=== PATIENT | male | born 1990 | race Caucasian/White ===

== ENCOUNTER 2024-07-10 05:13 | Emergency (ER) | payer OTHER, SELFPAY ==
[2024-07-10 05:16] VITALS: BP 126/99; PULSE 98; RESP 18; TEMP 36.9; O2SAT 99; BMI 23.9
[2024-07-10 05:34] LABS: MANUAL DIFF FLAG NO
[2024-07-10 05:36] LABS: Basophils Percent Auto 0.6 % (0-2); Eosinophils Absolute Auto 0.1 X10*3/uL (0.0-0.4); Hematocrit 42.8 % (42.0-52.0); Imm Gran Abs Auto 0.02 X10*3/uL (0.00-0.03); Imm Gran Pct Auto 0.4 % (0.0-0.4); Lymphocytes Absolute Auto 2.7 X10*3/uL (1.2-4.9); Lymphocytes Percent Auto 54.5 % (20-40); Mean Corpuscular Hemoglobin 30.9 pg (27.0-33.0); Mean Corpuscular Volume 88.1 fL (80.0-98.0); Mean Platelet Volume 9.1 fL (9.4-12.4); Monocytes Absolute Auto 0.6 X10*3/uL (0.1-1.2); Monocytes Percent Auto 11.6 % (2-11); Neutrophils Absolute Auto 1.5 x10*3/uL (2.0-8.3); Neutrophils Percent Auto 30.9 % (45-73); Platelet Count 347 X10*3/uL (160-400); Red Blood Count 4.86 X10*6/uL (4.60-5.80); Red Cell Distribution Width 13.4 % (11.0-16.0)
--- OUTSIDE RECORDS SUMMARY | 2024-07-10 05:37 | XMS_ITS | Continuity of Care Document ---
Author Organization [facility] al Address [address] [place] [address]- Care Team Providers Care Lubrication Worker Name Role Phone Not on Staff, PCP Primary Care Physician Unavail able [id number] Date(s): 07/07/24 - 07/07/[address] [address]- Discharge Disposition: A-D/C Walkout Attending Physician: Not on Staff, Attending MD Admitting Physician: Not on Staff, Admitting MD Referring Physician: Not on Staff, Referring MD Encounter Type: Disch ES Allergies, Adverse Reactions, Alerts Substance Criticality Severity Reaction Reaction Severity Status penicillin Anaphylaxis hives Active Other Food Allergy 1 Active 1blue cheese Immunizations Given and Recorded Vaccine Date Status Refusal Reason tetanus/diphtheria/pertussis, acel(Tdap) 03/29/21 Given Vital Signs Most recent to oldest [Reference Range]: 1 Height 170 cm (07/07/24 9:15 PM) Weight 69.7 kg (07/07/24 9:15 PM) Oxygen Saturation [94-100 %] 98 % (07/07/24 9:15 PM) Pulse Rate [55-90 bpm] 104 bpm *H* (07/07/24 9:15 PM) Blood Pressure [90-138/55-84 mm Hg] 117/ 79mm Hg (07/07/24 9:15 PM) Respiratory Rate [16-30 br/min] 18 br/mi n (07/07/24 9:15 PM) Temperature [96.8-100.4 DegF] 99 DegF (07/07/24 9:15 PM) Mode of Delivery (Oxygen) Room air (07/07/24 9:15 PM) Blood pressure sites Arm, left (07/07/24 9:15 PM) Temperature Route Temporal (07/07/24 9:15 PM) Dry Weight 69.7 kg (07/07/24 9:15 PM) Weight Obtained Via Standing scale (07/07/24 9:15 PM) Social History Social History Type Response Smoking Status Light tobacco smoker entered on: 04/22/15 Sex Sex Representation Male (finding) Patient Care team information Care Team Personnel Name: Not on Staff, PCP Position: [facility] Physician (General Medicine) Member Role: PCP Care Team Related Persons Name: LIGIA CALLES Name: CHAD CALLES Insurance Providers Guarantor name: JERAMIE Health Plan Information #: 1 Payer: [facility] Member Number: [id number] Policy Number: JERAMIE Group Number: [id number] Health Plan Information #: 2 Payer: [facility] Member Number: [id number] Policy Number: JERAMIE Group Number: [id number]
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
--- OUTSIDE RECORDS SUMMARY | 2024-07-10 05:37 | XMS_ITS | Clinical Summary ---
Author Organization [facility] Address [id number] [place] [id number] Care Team Providers Care Drive Away Driver Name Role Phone Unavailable Primary Care Provider Unavailabl e Surgical History Surgery Date Site/Laterality Comments OTHER SURGICAL HISTORY PROCEDURE: DENIES PREVIOUS SURGERY Medical History Medical History Date Comments Closed fracture of middle or proximal phalanx or phalanges of hand 11/08 DX:Closed fracture of middle or proximal phalanx or phalanges of hand Historical Medical DX 07/15 DX:Fractur e clavicle-closed; COMMENT: right Concussion 06/2009; 06/02/11 DX:Concussion; COMMENT: snowboarding (also with fx'ed thoracic vertebrae); skateboarding Family History Medical History Relation Name Comments Hypertension Father Nephrolithiasis Father Diabetes Other 1 Mother's side Other: heart disea Other 2 Maternal Grandmother Relation Name Status Comments Brother 1 Alive 03/1991 Sriram Brother 2 Alive 06/1996 Preet Father Alive 1956 Mother Alive 1965 Other 1 Other 2 Other 3 Social History Tobacco Use Types Packs/Day Years Used Date Smoking Tobacco: Passive Smo ke Exposure - Never Smoker Smokeless Tobacco: Never Alcohol Use Standard Drinks/Week Comments No 0 (1 standard drink = 0.6 oz pur e alcohol) Sex and Gender Information Value Date Recorded Sex Assigned at Not on file Gender Identity Not on file Sexual Orientation Not on file Obstetrics History Plan of Treatment Health Maintenance Due Date Last Done Comments DTaP,Tdap,and Td Vaccines (8 - Td or Tdap) 11/27/2018 11/27/2008, 10/21/2004, 10/08/1997, Additional history exists Depression Screening 05/05/2022 HIV Screening 05/05/2022 Hepatitis C Screening 05/05/2022 Social Influencers of Health Screening 05/05/2022 COVID-19 Vaccine ( season) 2024 Influenza Vaccine (#1) 2024 Hepatitis B Vaccines Completed 07/21/1993, 1992, 1992 IPV Vaccines Completed 10/08/1997, 04/07, 02/18/1993, Additional history exists MMR Vaccines Completed 10/08/1997, 02/13/1994 Varicella Vaccines Completed 12/04/2009, 03/15/1995 Meningococcal ACWY Vaccine Aged Out 01/26/2012, No longer eligible based on patient's age to complete this topic HIB Vaccines Aged Out No longer eligi ble based on patient's age to complete this topic HPV Vaccines Aged Out No longer eligi ble based on patient's age to complete this topic Hepatitis A Vaccines Aged Out No long er eligible based on patient's age to complete this topic Pneumococcal Vaccine: Pediatrics (0 to 5 Years) and At-Risk Patients (6 to 64 Years) Aged Out No longer eligible based on patient's age to complete this topic RSV Immunization Patients Under 20 months Aged Out No longer eligible based on patient's age to complete this topic
[2024-07-10 05:49] LABS: Alanine Aminotransferase 56 U/L (0-40); Albumin Level 4.3 g/dL (3.5-5.0); Alkaline Phosphatase 70 U/L (39-117); Anion Gap 16 (12-20); Aspartate Amino Transferase 64 U/L (5-37); Bilirubin Total 0.3 mg/dL (0.0-1.0); Blood Urea Nitrogen 8 mg/dL (9-16); Calcium 8.8 mg/dL (8.4-10.2); Carbon Dioxide 22 mmol/L (22-29); Chloride 110 mmol/L (96-108); Creatinine Clr Calc Pharmacy 150.7; Estimated Glomerular Filt Rate > 60; Ethanol 245 mg/dL; Glucose Random 106 mg/dL (60-115); Potassium 3.7 mmol/L (3.3-5.1); Sodium 144 mmol/L (135-145); Total Protein 7.3 g/dL (6.5-8.0)
[2024-07-10 05:51] LABS: COVID-19 Test Negative (Negative); IDNOW Serial# 55D5AD1C
[2024-07-10 05:54] LABS: Acetaminophen LAB < 3 mcg/mL (<30); Salicylate < 5.0 mg/dL (15-30)
[2024-07-10 06:00] VITALS: BP 145/88; PULSE 85; RESP 18; TEMP 36.6; O2SAT 97
--- NOTE | 2024-07-10 06:53 | ED.GENADULT ---
HPI - General Adult General Chief complaint: ETOH/Substance Use Stated complaint: ETOH, trembling Time Seen by Provider: 07/10/24 06:51 Source: patient Mode of arrival: ambulatory Limitations: no limitations History of Present Illness ED Provider: Alisson Bhatti PA-C HPI narrative: Patient is a 33 year old assigned male at with a history of alcohol abuse presenting to the emergency department today with alcohol intoxication and requesting recovery. Patient states that he was recently sectioned to [facility] for alcohol abuse, was discharged, and has been drinking at least 2 handles of vodka + rum per day. Patient denies any history of alcohol withdrawal seizures. Patient denies any dizziness, lightheadedness, abdominal pain, nausea, vomiting, fever, chills, blurry vision, double vision, loss of vision, chest pain, difficulty breathing, shortness of breath, back pain, night sweats, pain with urination, increased urinary frequency, increased urinary urgency, blood in his urine or stool, syncope or a near syncopal episode, recent trauma or falls, bowel incontinence, bladder incontinence, or any other complaints at this time. Relieving factors: none Exacerbating factors: none Associated symptoms: denies other symptoms Treatments prior to arrival: none Related Data Allergies Allergy/AdvReac Type Severity Reaction Status Date / Time Penicillins Allergy Anaphylaxis Verified 07/10/24 05:18 Review of Systems Constitutional: Constitutional: Reports no additional constitutional complaints, Denies chills, Denies fever(s) and Denies night sweats Eyes: Eyes: Reports no additional eye complaints, Denies blurry vision, Denies change in vision, Denies diplopia, Denies eye discharge, Denies loss of vision and Denies eye pain ENT: Denies dizziness Cardiovascular: Cardiovascular: Reports no additional cardiovascular complaints, Denies chest pain, Denies lightheadedness, Denies Loss of Consciousness and Denies dyspnea Respiratory: Respiratory: Reports no additional respiratory complaints and Denies dyspnea Gastrointestinal: Gastrointestinal: Reports no additional gastrointestinal complaints, Denies abdominal pain, Denies melena, Denies hematochezia, Denies change in bowel habits and Denies change in stool character Genitourinary: Genitourinary: Reports no additional male genitourinary complaints, Denies hematuria, Denies oliguria, Denies difficulty urinating, Denies dysuria, Denies urinary frequency, Denies urinary hesitancy, Denies urinary incontinence and Denies urinary urgency Musculoskeletal: Musculoskeletal: Reports no additional musculoskeletal complaints, Denies numbness and Denies tingling Neurologic: Denies dizziness, Denies loss of vision, Denies numbness and Denies tingling Psychiatric: Psychiatric: Reports no additional psychiatric complaints Endocrine: Endocrine: Reports no additional endocrine complaints Hematologic/Lymphatic: Hematologic/Lymphatic: Reports no additional hematologic/lymphatic complaints Allergic/Immunologic: Allergic/Immunologic: Reports no additional allergic/immunologic complaints [facility] Past Medical History Attestation statement: The following information was validated with the patient. Source: old records reviewed and nursing notes reviewed Social History Social History Alcohol intake: current Alcohol intake frequency: 3 or more drinks per day Alcohol type: hard liquor Smoked in Last 30 Days: Yes Advance Directives: No Advance Directives Information Provided: Yes Do you have a plan to hurt others: No Plan Physical Exam ED Vital Signs: Vital Signs - 24 hr 07/10/24 05:16 07/10/24 06:00 07/10/24 08:20 Temperature 98.4 F 97.8 F 97.8 F Pulse Rate 98 85 74 Respiratory Rate 18 18 20 Blood Pressure 126/99 H 145/88 H 116/73 Pulse Oximetry 99 97 95 Oxygen Delivery Method Room Air Room Air Room Air 07/10/24 12:21 Temperature 98 F Pulse Rate 80 Respiratory Rate 18 Blood Pressure 143/78 H Pulse Oximetry 96 Oxygen Delivery Method Room Air BMI result Body Mass Index 23.9 Const General: cooperative, no acute distress, alert and awake Nutritional Appearance: well nourished Orientation/consciousness: patient oriented x3 Limitations: no limitations HENMT Head: Yes normal to inspection and Yes atraumatic Ears: hearing grossly normal bilaterally and external ears normal General nose exam: Normal external nose present, no nasal discharge noted and no epistaxis Face and sinus: Yes normal facial exam, No abrasion and No laceration Mouth: Normal oral and palatal mucosa present, no drooling and no muffled voice Eyes General: appearance normal, both eyes and all related structures Periorbital: periorbital findings normal Eyelids: Yes eyelids normal Conjunctivae: conjunctivae normal Pupils: Equal, round and reactive pupils present EOM: EOMs intact bilaterally Neck Neck: Yes normal visual inspection, Yes full ROM and Yes no lymphadenopathy Chest Chest palpation & inspection: normal inspection of the chest Resp Effort & Inspection: normal respiratory effort and able to speak in complete sentences GI Inspection: Yes normal to inspection Neuro General: patient oriented x3 and moves all extremities Cranial nerves: Yes Equal, round and reactive pupils present Cognition (Neuro): normal cognition Extrem General: Yes normal to inspection, Yes full ROM and Yes capillary refill normal Psych Appearance: grossly normal Mental Status: mental status grossly normal Affect: normal affect Attitude: cooperative Thought process: Normal thought process present Thought content: Normal thought content present Insight: Good insight present (Psych) Medications Administered Discontinued Medications Generic Name Dose Route Start Last Admin Trade Name Macarena PRN Reason Stop Dose Admin Lorazepam 2 mg 07/10/24 06:54 07/10/24 07:17 Lorazepam 1 Mg Tablet PO 07/10/24 06:55 2 mg ONCE ONE Administration Lorazepam 2 mg 07/10/24 12:14 07/10/24 12:18 Lorazepam 1 Mg Tablet PO 07/10/24 12:15 2 mg ONCE ONE Administration Medical Decision Making Medical Decision Making MDM Narrative: Patient is a 33 year old assigned male at with a history of alcohol abuse presenting to the emergency department today with alcohol intoxication and requesting recovery. Patient's physical exam was unremarkable. Patient's blood work showed an elevated ethanol level but otherwise unremarkable. Patient met with recovery who was able to secure him a bed at [facility]. I explained my physical exam findings as well as all test results to the patient. I answered all questions asked by the patient. Patient received multiple doses of PO ativan while in the department which, upon re-evaluation, he stated it helped his withdrawal symptoms significantly. I stressed the importance of the patient taking his medication as directed (either prescribed or as the over the counter packaging recommends). I stressed the importance of the patient following up with his primary care provider. I stressed the importance of the patient returning to the emergency department immediately if his symptoms were to worsen or if he were to develop any dizziness, shortness of breath, difficulty breathing, chest pain, blurry vision, loss of vision, nausea, vomiting, abdominal pain, fever, chills, back pain, or any other complaints. Patient verbalized agreement and understanding with this treatment plan and discharge to [facility]. Differential Diagnosis Differential Diagnoses: The differential diagnosis associated with the presentation includes Alcohol use Alcohol abuse Alcohol withdrawal Admission/Observation Consideration of admission/observation: Escalation of care including admission/observation considered Patient would have been admitted to the hospital had his work up had any findings where hospital admission was appropriate and his clinical presentation warranted hospital admission. Consult Healthcare Provider Management of the patient was discussed with: Behavioral Health Provider (recovery team secured a bed at [facility] as noted in the MDM Rationale portion of this note.) Lab Data [facility] Lab Attestation statement: I reviewed the patient's lab results. My interpretation of these results are in the MDM Rationale portion of this note. 07/10/24 05:26 07/10/24 05:26 Labs: Lab Results 07/10/24 Range/Units 05:26 WBC 5.0 (4.8-10.8) X10*3/uL RBC 4.86 (4.60-5.80) X10*6/uL Hgb 15.0 (14.0-18.0) g/dl Hct 42.8 (42.0-52.0) % MCV 88.1 (80.0-98.0) fL MCH 30.9 (27.0-33.0) pg MCHC 35.0 (31.0-36.0) g/dl RDW 13.4 (11.0-16.0) % Plt Count 347 (160-400) X10*3/uL MPV 9.1 L (9.4-12.4) fL Immature Gran % (Auto) 0.4 (0.0-0.4) % Neut % (Auto) 30.9 L (45-73) % Lymph % (Auto) 54.5 H (20-40) % [place] % (Auto) 11.6 H (2-11) % Eos % (Auto) 2.0 (0-4) % Baso % (Auto) 0.6 (0-2) % Lymph # (Auto) 2.7 (1.2-4.9) X10*3/uL [place] # (Auto) 0.6 (0.1-1.2) X10*3/uL Eos # (Auto) 0.1 (0.0-0.4) X10*3/uL Baso # (Auto) 0.0 (0.0-0.2) X10*3/uL Abs Immat Gran (auto) 0.02 (0.00-0.03) X10*3/uL Absolute Neuts (auto) 1.5 L (2.0-8.3) x10*3/uL Absolute Nucleated RBC 0.000 (0.0-0.012) X10*3/uL Nucleated RBC % (auto) 0.0 (0.0-0.2) /100WBC Sodium 144 (135-145) mmol/L Potassium 3.7 (3.3-5.1) mmol/L Chloride 110 H (96-108) mmol/L Carbon Dioxide 22 (22-29) mmol/L Anion Gap 16 (12-20) BUN 8 L (9-16) mg/dL Creatinine 0.71 (0.5-1.4) mg/dL Estim Creat Clear Calc 150.7 Estimated GFR > 60 Random Glucose 106 (60-115) mg/dL Calcium 8.8 (8.4-10.2) mg/dL Total Bilirubin 0.3 (0.0-1.0) mg/dL AST 64 H (5-37) U/L ALT 56 H (0-40) U/L Alkaline Phosphatase 70 (39-117) U/L Total Protein 7.3 (6.5-8.0) g/dL Albumin 4.3 (3.5-5.0) g/dL Salicylates < 5.0 L (15-30) mg/dL Acetaminophen < 3 (<30) mcg/mL Ethyl Alcohol 245 mg/dL COVID-19 ([facility]) Negative (Negative) COVID-19 Clin Com See Note Discharge Plan Discharge Clinical Impression: Alcoholic intoxication, Alcoholism Patient Disposition: Home, Self-Care Instructions: Alcohol Intoxication (ED), Abuse of Alcohol (DC) Additional Instructions: Please got to [facility] as directed. Follow up with your primary care provider. Return to the emergency department immediately if your symptoms worsen or if you develop any dizziness, shortness of breath, difficulty breathing, chest pain, blurry vision, loss of vision, nausea, vomiting, abdominal pain, fever, chills, back pain, or any other complaints. Referrals: [facility] Family Medicine [Provider Group] (Call to establish and follow up with a primary care provider. If you already have a primary care provider, please follow up with them.) [facility] [Provider Group] (Call to establish and follow up with a primary care provider. If you already have a primary care provider, please follow up with them.) [facility] Primary Jovita Castorena [Provider Group] (Call to establish and follow up with a primary care provider. If you already have a primary care provider, please follow up with them.) Discharge Date/Time: 07/10/24 12:30 Print Language: Macedonian
[2024-07-10] MEDS: LORazepam 1 MG TABLET 2 MG PO ×2 (07:17→12:18)
[2024-07-10 08:20] VITALS: BP 116/73; PULSE 74; RESP 20; TEMP 36.6; O2SAT 95
--- NOTE | 2024-07-10 12:00 | MHC.RECOVRN ---
Pt accepted to [facility]. Transported via [facility].
[2024-07-10 12:21] VITALS: BP 143/78; PULSE 80; RESP 18; TEMP 36.6; O2SAT 96
== END 2024-07-10 12:30 | disposition home or self-care (01) ==
PROVIDERS: Emergency Provider Emergency Medicine
DX: F10.129 Alcohol abuse with intoxication, unspecified (principal); Y90.8 Blood alcohol level of 240 mg/100 ml or more; Z11.52 Encounter for screening for COVID-19; Z79.899 Other long term (current) drug therapy; Z71.41 Alcohol abuse counseling and surveillance of alcoholic
CPT/HCPCS: 36415; 80053; 80143; 80179; 80307; 85025; 87635; 99284; S9485

== ENCOUNTER 2025-03-15 09:40 | Emergency (ER) | payer OTHER, SELFPAY ==
--- NOTE | ~2025-03-15 | XR_ITS ---
EXAMINATION: XR WRIST, LEFT CLINICAL INFORMATION: pain COMPARISON: None available. TECHNIQUE: PA, lateral, oblique, and scaphoid views of the left wrist. FINDINGS: There is no joint diastases. There are no degenerative changes. There is normal bone mineral density. No fracture is identified. XR/XR wrist LT min 3V IMPRESSION: Unremarkable left wrist. Electronically signed by: James Escalante MD 03/15/2025 10:12 AM EDT
--- NOTE | ~2025-03-15 | XR_ITS ---
EXAMINATION: XR HAND, LEFT CLINICAL INFORMATION: pain COMPARISON: None available. TECHNIQUE: PA, lateral, and oblique views of the left hand. FINDINGS: There is normal bone mineral density. There is mild ulnar deviation of the third digit distal to the PIP joint. Joint spaces are preserved. There are no erosions or osteophytes. No fracture is identified XR/XR hand LT min 3V IMPRESSION: Unremarkable left hand. Electronically signed by: James Escalante MD 03/15/2025 10:13 AM EDT
[2025-03-15 09:52] VITALS: BP 120/77; PULSE 65; RESP 20; TEMP 36.6; O2SAT 98; BMI 22.7
--- NOTE | 2025-03-15 10:23 | ED_ITS ---
HPI - Extremity Problem General Chief complaint: Extremity Injury, Upper Stated complaint: L hand injury Time Seen by Provider: 03/15/25 10:23 Source: patient, RN notes reviewed and old records reviewed Mode of arrival: ambulatory Limitations: no limitations History of Present Illness ED Provider: Layton HPI Narrative: Patient is a 34-year-old right-hand dominant male presenting to the emergency department with injury to left hand after accidentally hitting himself with a sledgehammer prior to arrival. States that he was trying to break up bricks when he accidentally injured himself. Denies any other injuries. States tetanus is UTD. MD Complaint: extremity pain Related Data Previous Rx's ?Medication ?Instructions ?Recorded acetaminophen 325 mg capsule 650 mg (2 x 325 mg) PO Q6 H PRN 03/15/25 pain #30 caps doxycycline hyclate 100 mg capsule 100 mg PO BID #10 c aps 03/15/25 ibuprofen 600 mg tablet 600 mg PO TID PRN pain #30 t abs 03/15/25 oxycodone 5 mg tablet 5 mg PO Q6H PRN severe pain (scale 03/15/25 score 7-10) #12 tabs Allergies Allergy/AdvReac Type Severity Reaction Status Date / Time Penicillins Allergy Anaphylaxis Verified 03/15/25 09:53 Review of Systems Review of Systems: As per hPI Yes all other systems are reviewed and are negative Constitutional: Constitutional: Reports as per HPI [facility] Social History Social History Alcohol intake: current Alcohol intake frequency: 3 or more drinks per day Alcohol type: hard liquor Advance Directives: No Advance Directives Information Provided: Yes Do you have a plan to hurt others: No Plan Physical Exam Vital Signs: Vital Signs: Last Vital Signs Temp 97.8 F 03/15/25 09:52 Pulse 65 03/15/25 09:52 Resp 20 03/15/25 09:52 BP 120/77 03/15/25 09:52 Pulse Ox 98 03/15/25 09:52 O2 Del Method Room Air 03/15/25 09:52 BMI result Body Mass Index 22.7 Vital signs have been reviewed and appear to be correct. Blood pressure normal. Heart rate normal. Respiratory rate normal. Temperature normal. Oxygen saturation normal. Const: General: cooperative, healthy appearing and no acute distress Orientation/consciousness: oriented to person, oriented to place, oriented to time and patient oriented x3 Limitations: no limitations HEENT: Head: Yes normocephalic and Yes atraumatic Ears: external ears normal General nose exam: Normal external nose present Face and sinus: Yes face symmetric Mouth: oropharynx normal and moist mucous membranes Throat: Yes uvula midline Eyes: Pupils: Equal, round and reactive pupils present Neck: Neck: Yes normal visual inspection and Yes supple Resp: Effort & Inspection: normal respiratory effort and able to speak in complete sentences Auscultation: clear to auscultation bilaterally Cardio: Rate: regular rate Rhythm: regular rhythm Heart sounds: S1 normal heart sound present and S2 normal heart sound present GI: Palpation (GI): Soft to palpation and nontender Auscultation: normoactive bowel sounds : General: Yes no CVA tenderness Back/Spine/Pelvis: Back: no CVA tenderness Skin: General skin exam: elasticity normal and turgor normal Neuro: General: oriented to person, oriented to place, oriented to time, patient oriented x3, moves all extremities, no focal motor deficits and CN's II- XI intact bilaterally Cranial nerves: Yes Equal, round and reactive pupils present Cognition (Neuro): normal cognition Extrem: General: Yes full ROM, Yes no pedal edema and Yes no calf tenderness Left upper extremity: hand Details: normal capillary refill, neurosensory exam normal, tenderness Location: of the dorsal hand Location: over the radial aspect (over anatomical snuffbox) and of the palm Location: at the thenar eminence, abnormal ROM of finger (able to touch 2nd finger to thumb, unable to touch any other fingers to thumb) Details: pain with active ROM, swelling Location: of the palm Location: at the thenar eminence and abrasion Location: of the dorsal hand Location: on the radial aspect (over anatomical snuffbox) Psych: Mental Status: mental status grossly normal Affect: normal affect Thought process: Normal thought process present Medications Administered Discontinued Medications Generic Name Dose Route Start Last Admin Trade Name Freq PRN Reason Stop Dose Admin Oxycodone HCl 5 mg 03/15/25 10:30 03/15/25 10:39 Oxycodone Hcl Immed Release 5 Mg Tablet PO 03/15/25 10:31 5 mg ONCE ONE Administration Medical Decision Making Medical Decision Making MDM Narrative: Patient is a 34-year-old right-hand dominant male presenting to the emergency department with injury to left hand after accidentally hitting himself with a sledgehammer prior to arrival. On exam patient is awake, A+Ox3, VS WNL, afebrile, normal neurological exam without focal deficits, physical exam findings as above. Given reported symptoms and physical exam findings, initial differential includes but is not limited to left hand fracture, UCL or MCL injury/rupture. X-rays left hand and wrist notable for no fracture. My interpretation is in agreement with the radiologist's interpretation. Based on physical exam findings, concern for scaphoid fracture. Abrasion cleansed with saline and betadine. Thumb spica splint applied per procedure note. +CMS distal before and after application of splint. Will cover with doxy given abrasion, as patient has anaphylactic reaction to PCN. Will also prescribe a few oxycodone for severe pain. Discussed splint care and return precautions at bedside. Case discussed with Jacki from ortho, will refer patient for outpatient follow up. Patient verbalized understanding of and agreement with plan. Differential Diagnosis Differential Diagnoses: The differential diagnosis associated with the presentation includes as per [facility] Admission/Observation Consideration of admission/observation: Escalation of care including admission/observation considered Patient would have been admitted to the hospital and transferred to appropriate facility had their clinical presentation warranted hospital admission. Independent Interpretation I performed an independent interpretation of an: Plain X-Ray Interpretation: X-rays left hand and wrist notable for no fracture. Radiology Impression Discussion of test interpretation with radiology: I have reviewed the radiologist's reading. Radiologist Impression: XR/XR hand LT min 3V IMPRESSION: Unremarkable left hand. XR/XR wrist LT min 3V IMPRESSION: Unremarkable left wrist. External Record Review External record reviewed: Inpatient record, Office record and Outpatient record Prescription Management I considered prescription management with: Pain Medication and Antibiotic Discharge Plan Discharge Clinical Impression: Injury of UCL of left wrist Patient Disposition: Home, Self-Care Additional Instructions: You were evaluated in the emergency department today for a hand injury. We have concerns for a scaphoid fracture or possibly a UCL injury. Your hand was placed in a splint today, do not remove the splint or get the splint wet. You are being treated with a course of antibiotics to prevent infection, complete the f ull course as prescribed. You are being referred to orthopedics for further evaluation and management of your injury. They will call you to schedule an appointment. We recommend that you take 600 mg of ibuprofen or 650 mg of Tylenol every 6 hours as needed for pain. If necessary, you can alternate these medications every 3 hours. For example, at 9:00 a.m. take Tylenol, then at noon take ibuprofen, then at 3:00 p.m. take Tylenol, etc.. You are being prescribed a few oxycodone for severe pain. You can apply ice over the splint for 10-15 minutes at a time several times daily, using caution not to get the splint wet. You should also elevate your arm while at rest. Return to the emergency department if you develop numbness, tingling or change of color to your fingers. Prescriptions: New ibuprofen 600 mg tablet 600 mg PO TID PRN (Reason: pain) Qty: 30 0RF oxycodone 5 mg tablet 5 mg PO Q6H PRN (Reason: severe pain (scale score 7-10)) Qty: 12 0RF Rx Instructions: Partial Fill upon patient request. acetaminophen 325 mg capsule 650 mg PO Q6H PRN (Reason: pain) Qty: 30 0RF doxycycline hyclate 100 mg capsule 100 mg PO BID Qty: 10 0RF [place]: [facility] [Provider Group] Referral Note: c/f for scaphoid fracture as well, splinted in ED Clinical Impression: Injury of UCL of left wrist Stand Alone Forms: Work/School Release Print Language: Lao
[2025-03-15] MEDS: oxyCODONE HCl Immed Release 5 MG TABLET PO (10:39)
[2025-03-15 12:53] VITALS: BP 120/77; PULSE 65; RESP 20; TEMP 36.6; O2SAT 98
== END 2025-03-15 12:54 | disposition home or self-care (01) ==
PROVIDERS: Emergency Provider Emergency Medicine
DX: S69.82XA Other specified injuries of left wrist, hand and finger(s), initial encounter (principal); S60.512A Abrasion of left hand, initial encounter; W22.8XXA Striking against or struck by other objects, initial encounter; Y93.89 Activity, other specified; Y92.9 Unspecified place or not applicable; Y99.9 Unspecified external cause status; Z88.0 Allergy status to penicillin
CPT/HCPCS: 73110; 73130; 99283

== ENCOUNTER → 2025-03-15 09:56 | Outpatient (BNV) | payer OTHER, SELFPAY | PROVIDERS: Emergency Provider Emergency Medicine; Visit Provider Radiology Diagnostic Radiology | DX: M79.642 Pain in left hand (principal); M25.532 Pain in left wrist | CPT/HCPCS: 73110; 73130 ==

== ENCOUNTER 2025-03-26 14:40 | Outpatient (REF) | payer OTHER, SELFPAY ==
--- OUTSIDE RECORDS SUMMARY | 2025-03-26 18:30 | XMS_ITS | Patient Health Record ---
Author Organization [facility] Address [address] [facility] [address] [place] [address] Care Team Providers Care Construction Trench Digger Name Role Phone JOSE MADISON Primary Care Provider JOSE Hutchins Unavailable [phone] Reason For Referral No Information Plan Of Treatment No Information Insurance Providers Payer Name Payer Address Payer Phone Subscriber Number Group Number Insured Name Patient Relationship to Insured Coverage Start Date Coverage End Date [employer] [address] [place] [address] [id number] ERIKA CALLES Self - patient is the insured
== END 2025-03-26 14:41 | disposition home or self-care (01) ==
LOC: HO.HOSX 14:40
DX: Z13.89 Encounter for screening for other disorder (principal)

== ENCOUNTER 2025-03-27 09:06 | Outpatient (AMB) | payer OTHER, SELFPAY ==
--- NOTE | 2025-03-27 09:09 | A.OFFVIS_ITS ---
Vital Signs 03/27/25 09:10 Height 5 ft 9 in Weight 153 lb BMI 22.6 Intake Visit Reasons: FC LT wrist Scaphoid Injury of UCL DOI 03/15/25 Intake Note: Kenneth is a 34 year old right hand dominant male, new patient, who presents today for evaluation of Left Wrist Ulnar Collateral Ligament Injury, DOI: 03/15/25. Patient reported to [facility] he accidentally hit himself with a sledgehammer. At the ED, he was placed in a splint and prescribed Oxycodone, Ibuprofen, Tylenol, and Doxycycline. There is a question of a scaphoid fracture. Today, patient complains of pain at the base of the left thumb. He describes is as really sharp stabbing pain primarily with movement. He denies numbness or tingling. He continues taking Ibuprofen and Tylenol as needed, as well as his an tibiotics. Patient denies previous injuries or surgeries to the left hand. Allergies Penicillins Allergy (Verified 03/27/25 09:10) Anaphylaxis HPI HPI FC LT wrist Scaphoid Injury of UCL DOI 03/15/25: Details: Kenneth is a 34 year old right hand dominant male, new patient, who presents today for evaluation of Left Wrist Ulnar Collateral Ligament Injury, DOI: 03/15/25. Patient reported to [facility] he accidentally hit himself with a sledgehammer. At the ED, he was placed in a splint and prescribed Oxycodone, Ibuprofen, Tylenol, and Doxycycline. There is a question of a scaphoid fracture. Today, patient complains of pain at the base of the left thumb. He describes is as really sharp stabbing pain primarily with movement. He denies numbness or tingling. He continues taking Ibuprofen and Tylenol as needed, as well as his antibiotics. Patient denies previous injuries or surgeries to the left hand. [facility] Social History (Updated 03/27/25 @ 09:22 by HENRY Best) Alcohol intake: former Patient Tobacco Use Status: Current everyday Tobacco user Current occupational status: employed Current occupation: independent construction, rt handed Review of Systems Const All systems reviewed & are unremarkable except as noted in HPI and below Physical Exam Vital Signs: BMI result Body Mass Index 22.6 Extrem Other: Patient is alert, oriented, and in no acute distress. Neuro: Normal sensation of the tips of all digits of the left hand at this time Vascular: Cap refill brisk Pain: Tenderness to palpation about the scapholunate interval of the left wrist No tenderness to palpation of the anatomical snuffbox of the left wrist Tenderness to palpation about the 1st metacarpal Skin: No lacerations or abrasions. General: No ecchymosis, erythema, or evidence of infection. Psych: Appears grossly normal Affect normal Attitude cooperative Results Reviewed Results Reviewed: X-rays obtained in the office today and independently reviewed by me, Donte Kaplan PA-C, demonstrate dissociation of the scapholunate joint of the left wrist. Assessment & Plan Assessment & Plan (1) Injury of UCL of left wrist: Code(s): S66.802A - Unspecified injury of other specified muscles, fascia and tendons at wrist and hand level, left hand, initial encounter Category: Medical (2) Scapholunate dissociation of left wrist: Code(s): M25.332 - Other instability, left wrist Category: Medical Plan 1. Scapholunate dissociation of the left wrist Date of injury 03/14/2025 Patient is educated about this condition Patient is educated about the typical recovery course At this time, MRI ordered to assess the health of the scapholunate ligament of the left wrist and to determine if any surgical intervention is indicated Patient is also provided with a Velcro wrist splint to be worn like a cast until after MRI review Patient is educated that if MRI does demonstrate acute scapholunate ligament tear, surgery will likely be indicated Patient understands this in his amenable to this plan Follow-up after MRI, sooner with any acute concerns Orders: Orders XR wrist LT w scaphoid 03/27/25 M25.532 - Pain in left wrist MR wrist LT wo con 03/27/25 M25.332 - Other instability, left wrist, S66.802A - Unspecified injury of other specified muscles, fascia and tendons at wrist and hand level, left hand, initial encounter Medications: Discontinued oxycodone Partial Fill upon patient request. Discontinued Reason: Patient Completed Course 5 mg PO Q6H PRN 12 tabs 0RF severe pain (scale score 7-10) Coding Level of Care Code New Pt Level 3 (13058) Diagnoses Injury of UCL of left wrist S66.802A Scapholunate dissociation of left wrist M25.332
[2025-03-27 09:10] VITALS: BMI 22.6
--- OUTSIDE RECORDS SUMMARY | 2025-03-27 09:52 | XMS_ITS | Patient Health Record ---
Author Organization [facility] Address [address] [facility] [address] [place] [address] Care Team Providers Care Senior Group Manager Name Role Phone JOSE MADISON Primary Care Provider JOSE Hutchins Unavailable [phone] Reason For Referral No Information Plan Of Treatment No Information Insurance Providers Payer Name Payer Address Payer Phone Subscriber Number Group Number Insured Name Patient Relationship to Insured Coverage Start Date Coverage End Date [employer] [address] [place] [address] [phone] [id number] ERIKA CALLES Self - patient is the insured
== END 2025-03-27 09:46 | disposition home or self-care (01) ==
LOC: HO.HOS 09:06
DX: S66.802A Unspecified injury of other specified muscles, fascia and tendons at wrist and hand level, left hand, initial encounter (principal); M25.332 Other instability, left wrist
CPT/HCPCS: 99203

== ENCOUNTER → 2025-03-27 09:12 | Outpatient (BNV) | payer OTHER, SELFPAY | PROVIDERS: Visit Provider Radiology Diagnostic Radiology | DX: M25.532 Pain in left wrist (principal) | CPT/HCPCS: 73110 ==

== ENCOUNTER 2025-03-27 10:24 | Outpatient (REF) | payer OTHER, SELFPAY ==
--- NOTE | ~2025-03-27 | XR_ITS ---
EXAMINATION: XR WRIST, LEFT CLINICAL INFORMATION: M25.532 - Pain in left wrist COMPARISON: 03/15/2025. TECHNIQUE: PA, lateral, oblique, and scaphoid views of the left wrist. FINDINGS: No fracture, dislocation, or suspicious bone lesion. Normal bone mineralization. Normal carpal alignment. Joint spaces are preserved. No significant arthropathy. Soft tissues appear normal. XR/XR wrist LT w scaphoid IMPRESSION: Normal left wrist. Electronically signed by: Doulgas Russo MD 03/27/2025 09:34 AM EDT
--- OUTSIDE RECORDS SUMMARY | 2025-03-29 12:35 | XMS_ITS | Clinical Summary ---
Author Organization [facility] Address [address] [place] [address] Care Team Providers Care Crib Attendant Name Role Phone Unavailable Primary Care Provider [...] Recorded Sex Assigned at Not on file Legal Sex Male 10:21 AM EST Gender Identity Not on file Sexual Orientation Not on file Obstetrics History Plan of Treatment Health Maintenance Due Date Last Done Comments DTaP,Tdap,and Td Vaccines (8 - Td or Tdap) 11/27/2018 11/27/2008, 10/21/2004, 10/08/1997, Additional history exists HPV Vaccines (1 - 3-dose SCDM series) 10/18/2019 Depression Screening 06/07/2024 COVID-19 Vaccine ( season) 2025 Influenza Vaccine (#1) 2025 RSV Immunization Adult Patients (1 - 1-dose 75+ series) 10/18/2067 Hepatitis B Vaccines Completed 07/21/1993, 1992, 1992 [...] on patient's age to complete this topic Meningococcal B Vaccine Aged Out No l onger eligible based on patient's age to complete this topic Pneumococcal Vaccine: Pediatrics (0 to 5 Years) and At-Risk Patients (6 to 49 Years) Aged Out No longer eligible based on patient's age to complete this topic RSV Immunization Patients Under 20 months Aged Out No longer eligible based on patient's age to complete this topic
--- OUTSIDE RECORDS SUMMARY | 2025-03-29 12:35 | XMS_ITS | Patient Health Record ---
Author Organization [facility] Address [address] [facility] [address] [place] [address] Care Team Providers Care Employment Counselor Name Role Phone JOSE MADISON Primary Care Provider JOSE Hutchins Unavailable [phone] Reason For Referral No Information Plan Of Treatment No Information Insurance Providers Payer Name Payer Address Payer Phone Subscriber Number Group Number Insured Name Patient Relationship to Insured Coverage Start Date Coverage End Date [employer] [address] [place] [address] [phone] [id number] ERIKA CALLES Self - patient is the insured
== END 2025-03-27 10:25 | disposition home or self-care (01) ==
LOC: HO.HOSX 10:24
DX: S66.802D Unspecified injury of other specified muscles, fascia and tendons at wrist and hand level, left hand, subsequent encounter (principal); M25.332 Other instability, left wrist; M25.532 Pain in left wrist
CPT/HCPCS: 73110; 99202

== ENCOUNTER 2025-03-30 11:52 | Outpatient (REF) | payer OTHER, SELFPAY ==
--- NOTE | ~2025-03-30 | XR_ITS ---
EXAMINATION: XR ORBITS CLINICAL INFORMATION: PRE-MRI, ORBITS, COMPARISON: None available. TECHNIQUE: 3 views of the orbits were obtained. FINDINGS: No radiopaque foreign body evident in either orbit or elsewhere. Bones are intact. There are no fractures. There is no bone lesion. Paranasal sinuses are grossly well pneumatized without opacity or air-fluid level. Nasal septum is grossly midline. Sella is normal in size. Soft tissues appear normal. XR/XR Orbits For Foreign Body IMPRESSION: 1. Normal exam. No radiopaque foreign body seen. Electronically signed by: Douglas Russo MD 03/30/2025 12:26 PM EDT
--- OUTSIDE RECORDS SUMMARY | 2025-03-30 14:17 | XMS_ITS | Clinical Summary ---
Author Organization [facility] Address [address] [place] [phone] Care Team Providers Care Data Processing Specialist Name Role Phone Unavailable Primary Care Provider [...]
--- OUTSIDE RECORDS SUMMARY | 2025-03-30 14:17 | XMS_ITS | Patient Health Record ---
Author Organization [facility] Address [address] [facility] [address] [place] [address] Care Team Providers Care Pressroom Supervisor Name Role Phone JOSE MADISON Primary Care Provider JOSE Hutchins [facility] [phone] Reason For Referral No Information Plan Of Treatment No Information Insurance Providers Payer Name Payer Address Payer Phone Subscriber Number Group Number Insured Name Patient Relationship to Insured Coverage Start Date Coverage End Date [employer] [address] [place] [address] [phone] [id number] ERIKA CALLES Self - patient is the insured
== END 2025-03-30 11:53 | disposition home or self-care (01) ==
LOC: HO.XRAY 11:52
PROVIDERS: Visit Provider Radiology Diagnostic Radiology
DX: Z01.818 Encounter for other preprocedural examination (principal)
CPT/HCPCS: 70030

== ENCOUNTER → 2025-03-30 12:06 | Outpatient (BNV) | payer OTHER, SELFPAY | PROVIDERS: Visit Provider Radiology Diagnostic Radiology | DX: Z01.818 Encounter for other preprocedural examination (principal) | CPT/HCPCS: 70030 ==

== ENCOUNTER 2025-04-02 19:17 | Outpatient (REF) | payer OTHER, SELFPAY ==
--- NOTE | ~2025-04-02 | MR_ITS ---
CLINICAL HISTORY: S66.802A - INJURY OF UCL SCAPHOLUNATE DISLOCATION MR left wrist without contrast Comparison: DX/SR - XR WRIST NAVICULAR LEFT - 03/27/25 09:12 EDT CR/SR - XR WRIST 3 OR MORE VIEWS LEFT - 03/15/25 10:08 EDT CR/SR - XR HAND 3 OR MORE VIEWS LEFT - 03/15/25 10:08 EDT Findings: No fracture line. Mild amount of edema in the carpal bones could be degenerative or posttraumatic. There is a mild amount of cystic change in the carpal bones, degenerative. The musculature is normal in signal and bulk. Normal vessels. No ulnar variance. The distal radioulnar joint is congruent. There is no definitive carpal instability. No carpus or distal radioulnar joint effusion. The scapholunate, lunotriquetral and triangular fibrocartilage are intact. There is increased signal abductor pollicis longus and extensor pollicis brevis tendons without discontinuity. There is adjacent mild infiltration of the subcutaneous fat, likely posttraumatic. Extensor tendons are otherwise unremarkable. 1.5 x 0.7 x 1.6 cm fluid signal lesion adjacent to the flexor digitorum superficialis tendons at the level of metacarpal bones. Normal carpal tunnel, median nerve, flexor retinaculum, flexor tendons and Guyon canal. Normal first carpometacarpal, scaphotrapezotrapezoidal and pisiform-triquetral joints. Impression: No fracture. Mild amount of edema in the carpal bones, degenerative versus posttraumatic. Intact scapholunate ligament. Increased signal in abductor pollicis longus and extensor pollicis brevis tendons without discontinuity with mild adjacent infiltration of the subcutaneous fat, likely indicating posttraumatic tendinopathy without tear. Fluid signal lesion adjacent to the flexor digitorum superficialis tendons could be a ganglion or synovial cyst. This document has been electronically signed by: Diane Tristan MD on 04/02/2025 21:01:29
--- OUTSIDE RECORDS SUMMARY | 2025-04-02 19:36 | XMS_ITS | Clinical Summary ---
Author Organization [facility] Address [address] [place] [address] Care Team Providers Care Reinforcing Steel Machine Operator Name Role Phone Unavailable Primary Care Provider [...]
--- OUTSIDE RECORDS SUMMARY | 2025-04-02 19:36 | XMS_ITS | Patient Health Record ---
Author Organization [facility] Address [address] [facility] [address] [place] [address] Care Team Providers Care Seo Expert Name Role Phone JOSE MADISON Primary Care Provider JOSE Hutchins [facility] [phone] Reason For Referral No Information Plan Of Treatment No Information Insurance Providers Payer Name Payer Address Payer Phone Subscriber Number Group Number Insured Name Patient Relationship to Insured Coverage Start Date Coverage End Date [employer] [address] [place] [address] [id number] ERIKA CALLES Self - patient is the insured
== END 2025-04-02 19:18 | disposition home or self-care (01) ==
LOC: HO.MRI 19:17
PROVIDERS: Absent Provider Radiology Diagnostic Radiology
DX: M25.332 Other instability, left wrist (principal); S66.802D Unspecified injury of other specified muscles, fascia and tendons at wrist and hand level, left hand, subsequent encounter
CPT/HCPCS: 73221

== ENCOUNTER → 2025-04-02 19:17 | Outpatient (BNV) | payer OTHER, SELFPAY | PROVIDERS: Absent Provider Radiology Diagnostic Radiology; Visit Provider Radiology Diagnostic Radiology | DX: S66.802A Unspecified injury of other specified muscles, fascia and tendons at wrist and hand level, left hand, initial encounter (principal) | CPT/HCPCS: 73221 ==

== ENCOUNTER 2025-05-16 11:29 | Outpatient (AMB) | payer OTHER, SELFPAY ==
--- NOTE | 2025-05-16 11:29 | A.OFFVIS_ITS ---
Vital Signs 05/16/25 11:34 Height 5 ft 9 in Weight 153 lb BMI 22.6 Intake Visit Reasons: OV-Left Wrist MRI Review Intake Note: Kenneth is a 34 year old right hand dominant male who presents today for Follow Up of his Left Wrist Scapholunate Dissociation, DOI: 03/15/25 & Left Wrist MRI Review. At his last visit he was advised to remain at a 1 lb weight limit until follow up. Patient reports today his velcro wrist brace got wet and filthy 2 days ago while carrying something. He denies any worsening symptoms. Impression 04/02/25: No fracture. Mild amount of edema in the carpal bones, degenerative versus posttraumatic. Intact scapholunate ligament. Increased signal in abductor pollicis longus and extensor pollicis brevis tendons without discontinuity with mild adjacent infiltration of the subcutaneous fat, likely indicating posttraumatic tendinopathy without tear. Fluid signal lesion adjacent to the flexor digitorum superficialis tendons could be a ganglion or synovial cyst. Allergies Penicillins Allergy (Verified 05/16/25 11:33) Anaphylaxis HPI HPI OV-Left Wrist MRI Review: Details: Kenneth is a 34 year old right hand dominant male who presents today for Follow Up of his Left Wrist Scapholunate Dissociation, DOI: 03/15/25 & Left Wrist MRI Review. At his last visit he was advised to remain at a 1 lb weight limit until follow up. Patient reports today his velcro wrist brace got wet and filthy 2 days ago while carrying something. He denies any worsening symptoms. Patient reports no active discomfort at this time, states that he only experiences minor discomfort when attempting to hyperextend the left thumb or put pressure on the thumb in extension, and he feels and ?tightness? in the volar aspect of the MCP joint of the left thumb with this motion. Impression 04/02/25: No fracture. Mild amount of edema in the carpal bones, degenerative versus posttraumatic. Intact scapholunate ligament. Increased signal in abductor pollicis longus and extensor pollicis brevis tendons without discontinuity with mild adjacent infiltration of the subcutaneous fat, likely indicating posttraumatic tendinopathy without tear. Fluid signal lesion adjacent to the flexor digitorum superficialis tendons could be a ganglion or synovial cyst. [facility] Social History (Updated 03/27/25 @ 09:22 by HENRY Best) Alcohol intake: former Patient Tobacco Use Status: Current everyday Tobacco user Current occupational status: employed Current occupation: independent construction, rt handed Review of Systems Const All systems reviewed & are unremarkable except as noted in HPI and below Physical Exam Vital Signs: BMI result Body Mass Index 22.6 Extrem Other: Patient is alert, oriented, and in no acute distress. Neuro: Normal sensation of the tips of all digits of the left hand at this time Vascular: Cap refill brisk Pain: No further Tenderness to palpation about the scapholunate interval of the left wrist No tenderness to palpation of the anatomical snuffbox of the left wrist No tenderness to palpation of the 1st metacarpal Skin: No lacerations or abrasions. General: No ecchymosis, erythema, or evidence of infection. Psych: Appears grossly normal Affect normal Attitude cooperative Assessment & Plan Assessment & Plan (1) Left wrist tendonitis: Code(s): M77.8 - Other enthesopathies, not elsewhere classified Category: Medical Plan 1. Left wrist tendinitis Patient appears to be recovering very well from his injury Patient is educated about the typical recovery course As MRI was negative for anything other than in formation in the tendons of the left thumb and wrist, I feel it is appropriate to remove the patient from any immobilization at this time However, given his tendinitis and the slight stiffness he appears to be experiencing in the left thumb, I feel it is best to give the patient a course of occupational therapy Patient is advised he may begin a gradual return back to full normal activity at this time Patient understands this and is amenable to this plan Follow-up as needed Orders: Orders OT Evaluation and Treatment Today M77.8 - Other enthesopathies, not elsewhere classified Medications: Discontinued doxycycline hyclate Discontinued Reason: Patient Completed Course 100 mg PO BID 10 caps 0RF Coding Level of Care Code Est Pt Level 3 (41194) Diagnoses Left wrist tendonitis M77.8
[2025-05-16 11:34] VITALS: BMI 22.6
== END 2025-05-16 11:41 | disposition home or self-care (01) ==
LOC: HO.HOS 11:29
DX: M77.8 Other enthesopathies, not elsewhere classified (principal)
CPT/HCPCS: 99213

== ENCOUNTER → 2025-05-16 11:29 | Outpatient (BNVA) | payer OTHER, SELFPAY | DX: M77.8 Other enthesopathies, not elsewhere classified (principal) | CPT/HCPCS: 99212 ==